=== PATIENT | male | born 1950 | race Caucasian/White ===

== ENCOUNTER 2017-08-18 10:11 | Outpatient (CLI) | payer MEDICARE ==
--- NOTE | 2017-08-18 13:08 | RAD ---
PA AND LATERAL VIEWS OF THE CHEST: HISTORY: Wheezing. COMPARISON: 05/24/2017 FINDINGS: The heart size is normal. The aorta is tortuous. No confluent areas of consolidation, pneumothorax, or pleural effusions are seen. 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 Degenerative change s are present in the spine. IMPRESSION: No radiographic evidence of acute cardiopulmonary process. POS: C
== END 2017-08-18 10:12 | disposition home or self-care (01) ==
LOC: RAD-FRANK 10:11
PROVIDERS: ATTEND Nurse Practitioner Family
DX: R06.2 Wheezing (principal); R68.89 Other general symptoms and signs; J02.9 Acute pharyngitis, unspecified
CPT/HCPCS: 71020; 87070